=== PATIENT | female | born 1940 | race Caucasian/White ===

== ENCOUNTER 2020-11-15 16:03 | Outpatient (CLI) | payer MEDICARE, SELFPAY | END 2020-11-15 16:04 | disposition home or self-care (01) | LOC: CHSLAB 16:09 | PROVIDERS: PCP Internal Medicine; Visit Provider Specialist | DX: C44.42 Squamous cell carcinoma of skin of scalp and neck (principal); C44.519 Basal cell carcinoma of skin of other part of trunk | CPT/HCPCS: 88305 ==